=== PATIENT | female | born 1955 | race Caucasian/White ===

== ENCOUNTER → 2023-06-09 09:03 | Outpatient (REF) | payer BC, SELFPAY | LOC: HWWDC 09:03 | PROVIDERS: ATTENDING PHYSICIAN Nurse Practitioner Adult Health | DX: Z12.31 Encounter for screening mammogram for malignant neoplasm of breast (principal) | CPT/HCPCS: 77063; 77067 ==

== ENCOUNTER → 2024-07-19 11:44 | Outpatient (REF) | payer BC, SELFPAY | LOC: WDC 11:44 | PROVIDERS: ATTENDING PHYSICIAN Nurse Practitioner Adult Health | DX: Z12.31 Encounter for screening mammogram for malignant neoplasm of breast (principal) | CPT/HCPCS: 77063; 77067 ==